=== PATIENT | female | born 1980 | race Caucasian/White ===

== ENCOUNTER 2018-12-18 09:24 | Outpatient (CLI) | payer OTHER ==
[2018-12-18] MEDS ORDERED: LACTATED RINGERS 500 ML IV ONE (09:38)
[2018-12-18 10:16] VITALS: BP 108/66
== END 2018-12-18 10:38 | disposition home or self-care (01) ==
LOC: TRG 09:24
PROVIDERS: ATTEND Obstetrics & Gynecology
DX: O47.02 False labor before 37 completed weeks of gestation, second trimester (principal); Z3A.27 27 weeks gestation of pregnancy
CPT/HCPCS: 59025

== ENCOUNTER 2019-03-14 08:50 | Inpatient (IN) | payer MEDICAID, OTHER ==
[2019-03-14] MEDS ORDERED: LACTATED RINGERS 1,000 ML IV SCH (10:00)
[2019-03-14] MEDS ORDERED: PITOCin/NS 20 UNIT/1000ML DRIP 20 UNITS/1,000 ML BAG IV SCH ×2 (10:00→14:00)
[2019-03-14 10:04] LABS: Basophils % (Auto) 0.6 % (0.0-1.8); Eosinophils # (Auto) 0.1 K/mm3 (0.0-0.4); Eosinophils % (Auto) 0.7 % (0.0-4.3); Hemoglobin 11.6 gm/dl (10.1-14.3); Lymphocytes # (Auto) 1.6 K/mm3 (1.2-5.4); Lymphocytes % (Auto) 23.4 % (13.4-35.0); Mean Corpuscular HGB Conc 33 % (30-34); Mean Corpuscular Volume 83 fl (79-97); Monocytes # (Auto) 0.5 K/mm3 (0.0-0.8); Monocytes % (Auto) 7.1 % (0.0-7.3); Platelet Count 174 K/mm3 (140-440); Red Blood Count 4.21 M/mm3 (3.65-5.03); Red Cell Distribution Width 15.5 % (13.2-15.2)
[2019-03-14] MEDS ORDERED: ANCEF/STERILE WATER 2 GM/20 ML 2 GM/20 ML SYRINGE IV NR (10:30)
[2019-03-14] MEDS ORDERED: PEPCID IV NR (10:30)
[2019-03-14] MEDS ORDERED: REGLAN IV NR (10:30)
[2019-03-14] MEDS ORDERED: BICITRA PO NR (10:30)
[2019-03-14] MEDS ORDERED: SUBLIMAZE ONE (10:55)
--- NOTE | 2019-03-14 11:06 | History and Physical Report ---
History of Present Illness Date of examination: 03/14/19 Date of admission: 03/14/19 08:50 Chief complaint: SIUP at 39 weeks and 4 days gestation not in labor. Previous C/section. Unwanted fertility. History of present illness: Patient is a 38 year old , LMP 05/11/18, EDC 02/15/19 at 39 weeks and 4 days gestation who was admitted for elective repeat C/section and tubal ligation. She denies any contractions, fluid leakage or bleeding. She reports good movement. tracing is CAT1. Past History Past Medical History: other (anemia) Past Surgical History: section Family/Genetic History: none Social history: no significant social history - Obstetrical History Expected Date of Delivery: 03/17/19 Actual Gestation: 39 Week(s) 4 Day(s) : 2 Para: 1 Number of Living Children: 1 Medications and Allergies Allergies Allergy/AdvReac Type Severity Reaction Status Date / Time No Known Allergies Allergy Unverified 12/18/18 09:37 Home Medications Medication Instructions Recorded Confirmed Last Taken Type No Known Home Medications [No 03/14/19 03/14/19 Unknown History Reported Home Medications] Active Meds: Active Medications Citric Acid/Sodium Citrate (Bicitra) 30 ml PO ONCE NR Stop: 03/14/19 17:00 Famotidine (Pepcid) 20 mg IV ONCE NR Stop: 03/14/19 17:00 Cefazolin Sodium (Ancef/Sterile Water 2 Gm/20 Ml) 2 gm in 20 mls @ 80 mls/hr IV PREOP NR; Protocol Stop: 03/14/19 17:00 Oxytocin/Sodium Chloride (Pitocin/Ns 20 Unit/1000ml Drip) 20 units in 1,000 mls @ 0 mls/hr IV TITR LEYDI Lactated Ringer's (Lactated Ringers) 1,000 mls @ 2,250 mls/hr IV PREOP LEYDI Stop: 03/15/19 10:27 Metoclopramide HCl (Reglan) 10 mg IV ONCE NR Stop: 03/14/19 17:00 - Vital Signs Vital signs: Vital Signs Temp Pulse Resp BP 98.1 F 90 16 117/67 03/14/19 09:34 03/14/19 09:34 03/14/19 09:34 03/14/19 09:34 Temp Pulse Resp BP Pulse Ox 98.1 F 90 16 117/67 03/14/19 09:34 03/14/19 09:34 03/14/19 09:34 03/14/19 09:34 - Physical Exam Cardiovascular: Normal S1, Normal S2 Lungs: Positive: Clear to auscultation Vulva: both: normal Deep Tendon Reflex Grade: Normal +2 - Obstetrical FHR: category 1 Uterine Contraction Monitor Mode: External Cervical Dilatation: 0 Cervical Effacement Percentage: 0 station: -2 Uterine Contraction Pattern: Absent Results Result Diagrams: 03/14/19 09:39 Abnormal lab results 03/14/19 Range/Units 09:39 RDW 15.5 H (13.2-15.2) % All other labs normal. Assessment and Plan - Patient Problems (1) 39 weeks gestation of Current Visit: Yes Status: Acute (2) Previous section Current Visit: Yes Status: Acute Plan to address problem: Admit to labor floor. Routine preop labs. IV hydration. Keep NPO. monitoring. Patient was counselled for repeat C/section and BTL. Risks, benefits, and alternatives of the procedure were discussed in detail with the patient which included but not limited to the risk of infection, hemorrhage requiring blood transfusion, injury to the bowel or bladder and blood vessels, failure of the tubal ligation to prevent which can result in unwanted pregnancies in the future. The patient expressed understanding, her questions were answered, and she gave informed consent. Anesthesia notified. (3) Unwanted fertility Current Visit: Yes Status: Acute (4) Anemia Current Visit: Yes Status: Acute
[2019-03-14] MEDS ORDERED: NACL 0.9% IR ONE (12:00)
[2019-03-14] MEDS ORDERED: WATER FOR IRRIG STERILE IR ONE (12:00)
[2019-03-14] MEDS ORDERED: METHERGINE IM ONE ×2 (12:30→12:36)
[2019-03-14] MEDS ORDERED: TORADOL ONE (13:29)
[2019-03-14] MEDS ORDERED: LANSINOH TP PRN (13:31)
[2019-03-14] MEDS ORDERED: TORADOL IV PRN (13:31)
[2019-03-14] MEDS ORDERED: ZOFRAN IV PRN (13:31)
[2019-03-14] MEDS ORDERED: TYLENOL PO PRN (13:31)
[2019-03-14] MEDS ORDERED: MILK OF MAGNESIA PO PRN (13:31)
[2019-03-14] MEDS ORDERED: TUCKS PAD TP PRN (13:31)
[2019-03-14] MEDS ORDERED: NARCAN 0.4 MG/1 ML IV PRN (13:31)
[2019-03-14] MEDS ORDERED: SENOKOT PO PRN (13:31)
[2019-03-14] MEDS ORDERED: PHENERGAN PR PRN (13:31)
[2019-03-14] MEDS ORDERED: MORPHINE IV PRN (13:31)
[2019-03-14] MEDS ORDERED: MYLICON PO PRN (13:31)
--- NOTE | 2019-03-14 13:33 | Operative Report ---
Operative Report Operative Report: Preoperative diagnosis 1. SIUP at 39 weeks and 4 days gestation not in labor. 2. Previous C/section. 3. Unwanted fertility. Postoperative diagnosis: 1. SIUP at 39 weeks and 4 days gestation not in labor. 2. Previous C/section. 3. Unwanted fertility. Procedure: 1. Repeat low-transverse section. 2. Bilateral tubal ligation via Pemoroy method. Surgeon: Dr. Peguero Snack Bar Attendant: none Anesthesia: epidural. IVF: RL 1.5 liters EBL: 600 cc Urine: 150 cc clear Complications: none. Intraoperative findings: 1. A male found in an DEISY position, delivered at 12:23 PM, Apgars 8 at 1 minute and 9 at 5 minutes, weight 8 lbs. 11 oz. 2. Normal fallopian tubes and ovaries bilaterally. Procedure details: Risks, benefits, and alternatives of the procedure were discussed in detail with the patient which included but not limited to the risk of infection, hemorrhage requiring blood transfusion, injury to the bowel or bladder and blood vessels, the risks of the tubal ligation to fail to prevent which can result in unwanted pregnancies in the future. The patient expressed understanding, her questions were answered, and she gave informed consent. The patient was taken to the operating room with an IV fluid infusing Ringers lactate. In the operating room, she was placed in a sitting position and given spinal anesthesia. She was then placed in a dorsal supine position with a leftward tilt. Roman catheter in Venodyne boots were placed. The abdomen was washed and she was prepared and draped in usual sterile fashion. After confirming adequate anesthesia, the Pfannenstiel skin incision was made in the lower abdomen about 2 cm above the pubic symphysis using the scalpel. This incision was carried down to the underlying fascia using the Bovie. The fascia was opened bilaterally in a curvilinear fashion using the Bovie. 2 straight Kocker clamps were used to grasp the upper edge of the fascia from which the underlying rectus abdominis muscles was dissected off using the Bovie. A similar procedure was done with the lower edge of the fascia to dissect the underlying rectus abdominis muscle. A quick survey of the anatomy revealed a gravid uterus, normal fallopian tubes and ovaries bilaterally. A bladder flap was created. David'O retractor was placed in the incision for proper visualization. A low transverse incision was made in the lower uterine segment. There was copious amount of clear amniotic fluids. The was found in an DEISY position, the head was delivered atraumatically followed by the delivery of the shoulders and the rest of the body at 12:23 PM. There was nuchal cord x 1. The cord was clamped 2 and cut and the was handed off to the waiting correspondence specialist. The was a male, Apgars were 8 at 1 minute and 9 at 5 minutes, weight was 8 pounds and 11 ounces. Cord blood was collected. The placenta was delivered manually and it was complete with a three-vessel cord. The uterine cavity was cleaned of clots and debris using dry lap sponges. The uterus was repaired in a running locked fashion using 0 Vicryl sutures. A secon d layer of imbrication was placed. The gutters were cleaned of clots and debris using dry lap sponges. The right Fallopian tube was grasped with Christine clamps and a 2-cm segment was suture ligated using 0 chromic suture. A similar procedure was done with the left Fallopian tube where a 2-cm segment was suture ligated and ressected. Both segments were sent to pathology. After confirming adequate hemostasis, the instruments were removed from the abdominal cavity. The rectus muscle was reapproximated in an interrupted fashion using 0 Vicryl sutures. The fascia was closed in a running fashion using 0 Vicryl sutures. The subcutaneous adipose tissue was closed with 2.0 chromic sutures. The skin was closed in a subcutaneous fashion with 4 vicryl on a Michael needle. Sterile dressing was placed. The counts of laps, needles, sponges, and instruments were correct 2. The patient tolerated the procedure well, she was taken to the recovery room in a stable condition.
[2019-03-14] MEDS ORDERED: ANUCORT-HC PR PRN (13:54)
[2019-03-14] MEDS ORDERED: SODIUM CHLORIDE FLUSH SYRINGE 10 ML IV SCH (14:00)
[2019-03-14] MEDS: TORADOL IV PRN ×2 (17:02→23:15)
[2019-03-14] MEDS: MORPHINE IV PRN (22:41)
[2019-03-15 01:03] LABS: Hematocrit 31.9 % (30.3-42.9); Hemoglobin 10.6 gm/dl (10.1-14.3)
[2019-03-15] MEDS: MORPHINE IV PRN (04:52)
[2019-03-15] MEDS: TORADOL IV PRN (04:53)
--- NOTE | 2019-03-15 09:00 | Progress Note ---
Assessment and Plan - Patient Problems (1) S/P repeat low transverse Current Visit: Yes Status: Acute Plan to address problem: POD 1 - stable Continue routine postop orders Discussed relief measures for edema Ambulation encouraged, as tolerated Abdominal binder ordered Anticipate discharge in 24 hours (2) S/P tubal ligation Current Visit: Yes Status: Acute Subjective - Subjective Date of service: 03/15/19 Principal diagnosis: POD #1; s/p Repeat LTCS with BTL Interval history: see H&P and Operative Report Patient reports: appetite normal, voiding normally, pain well controlled, flatus, ambulating normally, no bowel movement Olpe: doing well, other (breast and bottle feeding) Objective - Vital Signs Latest vital signs: Vital Signs Temp Pulse Resp BP BP BP Pulse Ox 03/15/19 05:45 98.5 F 97 H 20 110/61 96 03/15/19 01:35 98.2 F 85 18 103/55 96 03/14/19 20:02 98.6 F 88 16 120/66 97 03/14/19 15:40 98.7 F 86 18 114/77 99 03/14/19 14:45 74 13 106/64 97 03/14/19 14:15 75 13 98/54 98 03/14/19 14:00 81 12 93/57 98 03/14/19 13:45 94 H 13 94/54 96 03/14/19 13:40 93 H 12 103/56 97 03/14/19 13:35 96 H 13 96/56 97 03/14/19 13:30 97.7 F 102 H 14 108/58 97 03/14/19 09:34 98.1 F 90 16 117/67 Intake and Output 03/14/19 03/15/19 03/15/19 23:59 07:59 15:59 Intake Total 240 420 Output Total 400 600 Balance -160 -180 Intake: Intake, Free Water 240 420 Output: Urine 400 600 Indwelling Catheter 400 350 Void 250 Other: Total, Output Amount 400 250 # Voids Indwelling Catheter 1 - Exam Abdomen: Present: normal appearance, soft Vulva: both: normal Uterus: Present: normal, firm, fundal height at umbilicus Extremities: Present: edema (1+, BLE & BUE) Incision: Present: normal, dry, dressed Comments: small lochia - Labs Labs: Abnormal lab results 03/14/19 Range/Units 09:39 RDW 15.5 H (13.2-15.2) %
[2019-03-15] MEDS: FEOSOL PO SCH (09:58)
[2019-03-15] MEDS: PRENATAL VITAMIN PO SCH (09:58)
[2019-03-15] MEDS: PERCOCET 5/325 PO PRN ×3 (10:15→22:58)
[2019-03-15] MEDS: IBUPROFEN PO PRN ×2 (16:58→22:59)
[2019-03-16] MEDS: IBUPROFEN PO PRN ×3 (04:45→22:13)
[2019-03-16] MEDS ORDERED: BOOSTRIX IM ONE (06:00)
[2019-03-16] MEDS: PERCOCET 5/325 PO PRN ×2 (08:07→16:35)
[2019-03-16] MEDS: FEOSOL PO SCH (09:26)
[2019-03-16] MEDS: PRENATAL VITAMIN PO SCH (09:26)
--- NOTE | 2019-03-16 11:03 | Progress Note ---
Assessment and Plan A: /postop day 2 S/P repeat low transverse section with BTL. Anemia secondary to and blood loss. P: Encouraged ambulation. Iron supplementation. Anticipate discharge tomorrow. Subjective - Subjective Date of service: 03/16/19 Principal diagnosis: POD #2; s/p Repeat LTCS with BTL Interval history: /postop day 2 S/P repeat LTCS with BTL. Doing well. Patient reports small amount of lochia. Voiding without difficulty; ambulating well. Tolerating a regular diet without nausea or vomiting. Passing gas. Patient denies headache, chest pain, cough, shortness of breath, dizziness, leg pain, or heavy vaginal bleeding. Patient reports: appetite normal, voiding normally, pain well controlled, flatus, ambulating normally, no dizzy ambulation, no nauseated : doing well Objective - Vital Signs Latest vital signs: Vital Signs Temp Pulse Resp BP BP Pulse Ox 03/16/19 07:25 97.8 F 83 20 103/62 96 03/16/19 04:45 20 03/16/19 00:56 98.1 F 88 18 111/64 96 03/15/19 22:59 20 03/15/19 22:58 20 03/15/19 17:58 16 03/15/19 16:58 20 03/15/19 16:51 98.5 F 98 H 18 129/67 98 Intake and Output 03/15/19 03/16/19 03/16/19 23:59 07:59 15:59 Intake Total 840 480 Balance 840 480 Intake: Oral 480 Intake, Free Water 360 480 Other: Total, Intake Amount 480 Total, Output Amount 120 # Voids Void 2 1 - Exam Cardiovascular: Present: Regular rate, Normal S1, Normal S2, No murmurs Lungs: Present: Clear to auscultation Abdomen: Present: normal appearance, soft, normal bowel sounds. Absent: distention, tenderness, guarding, rigidity Uterus: Present: normal, firm, fundal height below umbilicus. Absent: bogginess, tenderness Extremities: Present: normal, edema (pedal edema bilaterally). Absent: tenderness Incision: Present: normal, dry, intact, dressed
[2019-03-17] MEDS: PERCOCET 5/325 PO PRN (07:47)
[2019-03-17] MEDS: PRENATAL VITAMIN PO SCH (09:08)
[2019-03-17] MEDS: FEOSOL PO SCH (09:08)
--- NOTE | 2019-03-17 10:52 | Progress Note ---
Assessment and Plan A: day 3 S/P repeat low transverse section with BTL. Anemia secondary to and blood loss. P: Discharge patient home today. discharge instructions and warning signs discussed with patient in detail. Care of incision and activity restrictions discussed with patient in detail. Advised patient to continue taking her vitamins and iron supplements at home. Advised patient to avoid intercourse, lifting and heavy housework, driving, and stair climbing. Advised her to avoid tub baths; she may take showers. Advised patient to call [facility] office and schedule an appointment to be seen in 1 week. Patient voiced understanding of all instructions. Subjective - Subjective Date of service: 03/17/19 Principal diagnosis: POD #3; s/p Repeat LTCS with BTL Interval history: /postop day 3 S/P repeat LTCS with BTL. Doing well. Patient reports small amount of lochia. Voiding without difficulty; ambulating well. Tolerating a regular diet without nausea or vomiting. Passing gas. Patient denies headache, chest pain, cough, shortness of breath, dizziness, leg pain, or heavy vaginal bleeding. Patient desires discharge today. Patient reports: appetite normal, voiding normally, pain well controlled, flatus, ambulating normally, no dizzy ambulation, no nauseated Otho: transported Objective - Vital Signs Latest vital signs: Vital Signs Temp Pulse Resp BP BP BP Pulse Ox 03/17/19 07:20 98.4 F 90 18 110/62 110/52 97 03/17/19 00:00 98.7 F 78 18 114/78 03/16/19 23:13 18 03/16/19 22:13 18 03/16/19 17:01 98.5 F 97 H 16 135/75 99 Intake and Output 03/16/19 03/17/19 03/17/19 23:59 07:59 15:59 Intake Total 540 Balance 540 Intake: Intake, Free Water 540 Other: # Voids Void 1 1 - Exam Cardiovascular: Present: Regular rate, Normal S1, Normal S2, No murmurs Lungs: Present: Clear to auscultation Abdomen: Present: normal appearance, soft, normal bowel sounds. Absent: distention, tenderness, guarding, rigidity Uterus: Present: normal, firm, fundal height below umbilicus. Absent: bogginess, tenderness Extremities: Present: normal. Absent: tenderness, edema Incision: Present: normal, dry, intact
--- NOTE | 2019-03-17 10:56 | Discharge Summary ---
Providers - Providers Date of Admission: 03/14/19 08:50 Date of discharge: 03/17/19 Attending physician: LOS LIRA MD None Primary care physician: LOS LIRA MD Hospitalization Reason for admission: section Delivery: Procedure: repeat low transverse Incision: normal, dry, intact Other procedures: tubal ligation complications: none Discharge diagnosis: IUP at term delivered baby: male Pertinent studies: Labs Hospital course: Normal hospital course Condition at discharge: Good Disposition: DC-01 TO HOME OR SELFCARE - Discharge Diagnoses (1) Term delivered Status: Acute (2) Anemia due to blood loss Status: Acute Plan - Discharge Medications Prescriptions: Ibuprofen [Motrin] 800 mg PO Q8HR PRN #30 tablet PRN Reason: Pain, Moderate (4-6) oxyCODONE /ACETAMINOPHEN [Percocet 5/325] 1 tab PO Q4HR #14 tab - Provider Discharge Summary Activity: routine, no sex for 6 weeks, no heavy lifting 4 weeks, no strenuous exercise Diet: routine Instructions: routine Additional instructions: Continue taking your iron supplements and vitamins at home. Call your doctor immediately for: * Fever > 100.5 * Heavy vaginal bleeding ( >1 pad per hour) * Severe persistent headache * Shortness of breath * Reddened, hot, painful area to leg or breast * Drainage or odor from incision. * Keep incision clean and dry at all times and follow doctor's instructions regarding bathing/showering - Follow up plan Follow up: LOS LIRA MD [Primary Care Provider] - 7 Days Forms: [facility] Discharge Summary, Discharge Signature Page
[2019-03-17 11:44] VITALS: BP 114/71
[2019-03-17] MEDS: IBUPROFEN PO PRN (12:05)
== END 2019-03-17 12:15 | disposition home or self-care (01) | DRG 785 ==
LOC: APU 08:50 → OB 15:48
PROVIDERS: ADMIT Obstetrics & Gynecology; ATTEND Obstetrics & Gynecology
PROC: 10D00Z1 Extraction of Products of Conception, Low, Open Approach (ICD-10-PCS; principal; 2019-03-14)
PROC: 0UT70ZZ Resection of Bilateral Fallopian Tubes, Open Approach (ICD-10-PCS; 2019-03-14)
DX: O34.211 Maternal care for low transverse scar from previous cesarean delivery (principal); D50.0 Iron deficiency anemia secondary to blood loss (chronic); O99.02 Anemia complicating childbirth; Z3A.39 39 weeks gestation of pregnancy; Z37.0 Single live birth
CPT/HCPCS: 36415; 85014; 85018; 85025; 86850; 86900; 86901; 88302; 90471; 90715; G0378; J0690; J1885; J2210; J2270; J2590; J2765; J3010; J7120